=== PATIENT | male | born 1965 ===

== ENCOUNTER 2016-12-17 12:12 | Emergency (ER) | payer OTHER ==
[2016-12-17 12:32] VITALS: RESP 18; TEMP 98
[2016-12-17] MEDS ORDERED: fentaNYL 100 MCG/2 ML INJ IVP ONE (12:51)
[2016-12-17] MEDS ORDERED: DIAZEPAM 10 MG/2 ML SYR IVP ONE ×2 (12:51→13:40)
--- NOTE | 2016-12-17 12:56 | EDPHY ---
H & P Stated Complaint: woke up with rt neck/shoulder pain - denies trauma Time Seen by Provider: 12/17/16 12:19 HPI/ROS: CHIEF COMPLAINT: Muscle spasm HISTORY OF PRESENT ILLNESS: This is a healthy 51-year-old male who woke with right neck and shoulder pain. The pain extends into his upper arm. He denies numbness. He is not aware of weakness. He has not had fever. He took 2 Aleve this morning and four aspirin. He has had minimal relief with those medications. No recent trauma. He is able to move his neck and has full range of movement but is reluctant to do so because it is painful. REVIEW OF SYSTEMS: A ten point review of systems was performed and is negative with the exception of the items mentioned in the HPI. - Personal History Current Tetanus Diphtheria and Acellular Pertussis (TDAP): Yes - Medical/Surgical History Other PMH: denies - Social History Smoking Status: Never smoked Alcohol Use: None Drug Use: None Additional Social History: He lives with his . 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 - Physical Exam Exam: General Appearance: Alert. Vital signs reviewed. He appears uncomfortable. BP 140/105 at triage (118/62 at DC). Neck: He is sitting with his head hanging forward, forehead tipped to the right and chin to the left, position of comfort for him. He is able to flex and extend and turn to the left and the right but it is painful for him to do so. There is palpable right trapezius muscle spasm. No lymphadenopathy. No tenderness to palpation of the cervical spine in the midline. No stepoff or bone deformity palpated. Respiratory: Lungs are clear to auscultation; no wheezes, rales, or rhonchi. Cardiovascular: Regular rate and rhythm; no murmur, rub, or gallop. Gastrointestinal: Abdomen is soft and nontender, no masses or organomegaly, bowel sounds normal. Skin: Warm and dry, no rashes on exposed skin, normal color. Neurological: Alert and oriented. Moving all four extremities easily and equally. Sensation is intact to light touch over both upper extremities. He has 5/5 deltoid, biceps, triceps, and entry level buyer strength bilaterally. Biceps reflexes are 2+ bilaterally. Psychiatric: Normal affect. Constitutional: Initial Vital Signs Temperature (C) 36.6 C 07/22/17 12:28 Heart Rate 75 12/17/16 12:28 Respiratory Rate 18 12/17/16 12:28 Blood Pressure 140/105 H 12/17/16 12:28 O2 Sat (%) 97 12/17/16 12:28 O2 Delivery Mode Room Air Allergies/Adverse Reactions: No Known Allergies Allergy (Unverified 12/17/16 12:28) Home Medications: Medication Instructions Recorded Diazepam [Valium 5 MG (*)] 5 mg PO TID PRN #15 tab 12/17/16 Hydrocodone/APAP 5/325 [[place] 1 - 2 tab PO Q4 PRN #10 tab 12/17/16 5/325 (RX)] Medical Decision Making ED Course/Re-evaluation: Healthy male who woke with neck pain and muscle spasm. His position of comfort suggests torticollis, he does have the ability to range his neck but it is painful for him to do so. An IV was placed and he is given 75 mcg of fentanyl and 2.5 mg of Valium. He had minimal relief with the above medications. He was given an additional 2.5 mg of Valium and 25 mg of Benadryl. Re-evaluation at 2:20 p.m.--he is asleep. Oxygenating well. On awakening he reported that his pain was still severe. Dilaudid administered. With the combination of the above medications he achieved pain relief. He will be discharged home with RX for valium and vicodin. His neurologic exam is normal--nothing to suggest myelopathy or radiculopathy. I do not suspect spinal cord or cervical spine injury. There has been no trauma. This appears to be torticollis. - Data Points Medications Given: Discontinued Medications Diazepam (Valium Injection) 2.5 mg IVP EDNOW ONE Stop: 12/17/16 12:52 Last Admin: 12/17/16 13:12 Dose: 2.5 mg Diazepam (Valium Injection) 2.5 mg IVP EDNOW ONE Stop: 12/17/16 13:41 Last Admin: 12/17/16 14:10 Dose: 10 mg Diphenhydramine HCl (Benadryl Injection) 25 mg IVP EDNOW ONE Stop: 12/17/16 13:41 Last Admin: 12/17/16 14:04 Dose: 25 mg Fentanyl (Sublimaze) 75 mcg IVP EDNOW ONE Stop: 12/17/16 12:52 Last Admin: 12/17/16 13:13 Dose: 75 mcg Hydromorphone HCl (Dilaudid) 0.5 mg IVP EDNOW ONE Stop: 12/17/16 14:44 Last Admin: 12/17/16 14:56 Dose: 0.5 mg Departure - Departure Disposition: Home, Routine, Self-Care Clinical Impression: Torticollis, acute Condition: Good Instructions: Spasmodic Torticollis (ED), Neck Pain (ED) Additional Instructions: Adult Pain & Fever Control: We recommend Acetaminophen (Tylenol) and Ibuprofen (Motrin,Advil) for pain and fever control. When fever is high or pain severe, both drugs can be used at the same time, but at different intervals. Please note the time differences. Your dose is: Acetaminophen 650mg every 4 to 6 hours Ibuprofen 400mg every 8 hours with food OR Naproxen Sodium (Aleve) every 12 hours. Note: do not take Acetaminophen with Hydrocodone (Vicodin, Lortab) or Oycodone (Percocet). These medications also contain Acetaminophen. No more than 3000mg of Acetaminophen should be taken in 24 hours (for an adult). Use the Valium for muscle spasm. You can take 5 mg every 8 hours. These medications will make you sleepy. Be careful--do not engage in potentially dangerous activities such as driving when taking these medicines. Do not drink alcohol with them. You might also try a lidocaine patch. You can buy these over the counter in the drugstore. If you develop worsening pain, new numbness, new weakness, trouble controlling your bowels or your bladder you need to be re-evaluated immediately. Follow up with Dr. Price if you are not improving in a couple of days. Referrals: [facility] [Primary Care Provider] - As per Instructions Stand Alone Forms: Narcotic Guidelines Prescriptions: Diazepam [Valium 5 MG (*)] 5 mg PO TID PRN #15 tab PRN Reason: Spasms Hydrocodone/APAP 5/325 [[place] 5/325 (RX)] 1 - 2 tab PO Q4 PRN #10 tab PRN Reason: pain
[2016-12-17] MEDS ORDERED: HYDROmorphONE/DILAUDID 1 MG/ML SYR IVP ONE (14:43)
[2016-12-17 15:42] VITALS: BP 118/62; PULSE 61; O2SAT 96
== END 2016-12-17 15:37 | disposition home or self-care (01) ==
LOC: CED 12:12
DX: M43.6 Torticollis (principal)
CPT/HCPCS: 96374; J1170; J1200; J3010

== ENCOUNTER → 2016-12-23 | Outpatient (CLI) | payer OTHER | LOC: FIMAGING 12:08 | PROVIDERS: ATTEND Family Medicine | DX: M54.2 Cervicalgia (principal); M62.838 Other muscle spasm; M79.2 Neuralgia and neuritis, unspecified; M50.30 Other cervical disc degeneration, unspecified cervical region; M48.02 Spinal stenosis, cervical region; Q76.49 Other congenital malformations of spine, not associated with scoliosis ==